=== PATIENT | male | born 1955 | race Caucasian/White ===

== ENCOUNTER → 2018-03-02 | Outpatient (CLI) | payer OTHER | END | disposition home or self-care (01) | LOC: HKI 10:17 | DX: Z47.89 Encounter for other orthopedic aftercare (principal); Z96.643 Presence of artificial hip joint, bilateral | CPT/HCPCS: 73502 ==

== ENCOUNTER 2018-04-01 14:13 | Day surgery (SDC) | payer OTHER ==
[~2018-04-01 14:13] MED LIST: DEXAMETHASONE 4 MG/ML 1 ML INJ; ONDANSETRON 4 MG INJ; SEVOFLURANE 15 MIN
[2018-04-01] MEDS ORDERED: BUPIVACAINE 0.5% (SDV) 30 ML INJ (15:01)
[2018-04-01] MEDS ORDERED: LIDOCAINE 2% (MDV) 20 ML INJ (15:02)
[2018-04-01] MEDS ORDERED: LIDOCAINE 0.5% (MDV) 50 ML INJ (15:02)
[2018-04-01] MEDS ORDERED: MEPERIDINE 25 MG INJ IV (15:30)
[2018-04-01] MEDS ORDERED: FENTAnyl 50 MCG/ML VIAL IV ×2 (15:30)
[2018-04-01] MEDS ORDERED: HYDROmorphONE 1 MG/5 ML IV SYRINGE IV ×3 (15:30)
[2018-04-01] MEDS ORDERED: hydrALAzine 20 MG INJ IV (15:30)
[2018-04-01] MEDS ORDERED: ONDANSETRON 4 MG INJ IV (15:30)
[2018-04-01] MEDS ORDERED: CLINDAMYCIN 900 MG/D5W (PMX) 50 ML IVPB (15:30)
[2018-04-01] MEDS ORDERED: IPRATROPIUM (NEB) 0.5 MG/2.5 ML AMP HHN (15:30)
[2018-04-01] MEDS ORDERED: DIPHENHYDRAMINE 50 MG INJ IV (15:30)
[2018-04-01] MEDS ORDERED: LABETALOL HCL 20MG INJ IV (15:30)
[2018-04-01] MEDS ORDERED: KETOROLAC 30 MG INJ IV (15:30)
[2018-04-01] MEDS ORDERED: ROPIVACAINE 0.5 % 30 ML VIAL (15:32)
[2018-04-01] MEDS: LACTATED RINGER'S 1,000 ML IV* (15:32)
[2018-04-01] MEDS ORDERED: FENTAnyl 50 MCG/ML VIAL (16:20)
[2018-04-01] MEDS ORDERED: LIDOCAINE 2% (SDV) 5 ML INJ (16:21)
[2018-04-01] MEDS ORDERED: MIDAZOLAM 1 MG/ML 2 ML INJ (16:21)
[2018-04-01] MEDS ORDERED: METOCLOPRAMIDE 10 MG INJ (16:21)
[2018-04-01] MEDS ORDERED: PROPOFOL 20 ML (16:21)
== END 2018-04-01 19:00 | disposition home or self-care (01) ==
LOC: SDS 14:13
DX: T84.84XA Pain due to internal orthopedic prosthetic devices, implants and grafts, initial encounter (principal); Y83.8 Other surgical procedures as the cause of abnormal reaction of the patient, or of later complication, without mention of misadventure at the time of the procedure; M25.721 Osteophyte, right elbow
CPT/HCPCS: 20680; 73110-RT; 88300